=== PATIENT | female | born 1975 ===

== ENCOUNTER 2017-12-06 14:18 | Emergency (ER) | payer SELFPAY ==
[2017-12-06 14:53] VITALS: BP 181/89
[2017-12-06 15:21] LABS: Basophils % (Auto) 0.4 % (0.0-1.8); Eosinophils # (Auto) 0.1 K/mm3 (0.0-0.4); Eosinophils % (Auto) 1.1 % (0.0-4.3); Lymphocytes # (Auto) 1.8 K/mm3 (1.2-5.4); Lymphocytes % (Auto) 22.2 % (13.4-35.0); Mean Corpuscular HGB Conc 29 % (30-34); Mean Corpuscular Volume 74 fl (79-97); Monocytes # (Auto) 0.4 K/mm3 (0.0-0.8); Platelet Count 361 K/mm3 (140-440); Red Blood Count 4.32 M/mm3 (3.65-5.03)
[2017-12-06 15:23] LABS: Hematocrit 31.9 % (30.3-42.9); Hemoglobin 9.4 gm/dl (10.1-14.3); Mean Corpuscular Hemoglobin 22 pg (28-32)
[2017-12-06 15:32] LABS: INR 0.96 (0.87-1.13)
[2017-12-06 15:33] LABS: Partial Thromboplastin Time 36.5 Sec. (24.2-36.6)
[2017-12-06 15:44] LABS: BUN/Creatinine Ratio 13; Blood Urea Nitrogen 10 mg/dL (7-17); Calcium 8.9 mg/dL (8.4-10.2); Hemolysis Index 0
== END 2017-12-06 18:18 | disposition left against medical advice (07) ==
LOC: ED 14:18
DX: R42 Dizziness and giddiness (principal); Z53.21 Procedure and treatment not carried out due to patient leaving prior to being seen by health care provider
CPT/HCPCS: 36415; 80048; 85025; 85610; 85730